=== PATIENT | male | born 1950 | race Caucasian/White ===

== ENCOUNTER 2023-05-10 09:41 | Outpatient (CLI) | payer MEDICARE | END 2023-05-10 09:42 | disposition home or self-care (01) | LOC: CSHMRI 09:41 | PROVIDERS: ATTEND Family Medicine | DX: R97.20 Elevated prostate specific antigen [PSA] (principal) | CPT/HCPCS: 72197; 82565 ==

== ENCOUNTER 2023-08-24 09:50 | Outpatient (CLI) | payer MEDICARE | END 2023-08-24 09:51 | disposition home or self-care (01) | LOC: CSHULT 09:50 | PROVIDERS: ATTEND Family Medicine | DX: R42 Dizziness and giddiness (principal); R55 Syncope and collapse | CPT/HCPCS: 93880 ==

== ENCOUNTER 2024-02-12 09:16 | Outpatient (CLI) | payer MEDICARE | END 2024-02-12 09:17 | disposition home or self-care (01) | LOC: CSHULT 09:16 | PROVIDERS: ATTEND Family Medicine | DX: E78.2 Mixed hyperlipidemia (principal) | CPT/HCPCS: 76536 ==

== ENCOUNTER 2024-03-26 23:02 | Emergency (ER) | payer MEDICARE ==
[2024-03-26] MEDS ORDERED: Fluorescein Opthalmic Strip ONE (23:09)
[2024-03-26] MEDS ORDERED: Tetracaine 0.5% PF 4 ML BOT ONE (23:10)
[2024-03-26] MEDS ORDERED: Erythromycin Base 0.5% Oint 1 GM TUBE ONE (23:59)
== END 2024-03-27 00:31 | disposition home or self-care (01) ==
LOC: CSHERS 23:02
DX: S05.02XA Injury of conjunctiva and corneal abrasion without foreign body, left eye, initial encounter (principal); E78.00 Pure hypercholesterolemia, unspecified; Z79.899 Other long term (current) drug therapy; X58.XXXA Exposure to other specified factors, initial encounter
CPT/HCPCS: 99283